=== PATIENT | female | born 1990 | race Caucasian/White ===

== ENCOUNTER 2016-09-19 18:52 | Emergency (ER) | payer OTHER ==
[~2016-09-19] VITALS: Ht 170.2 cm; Wt 79.0 kg
[~2016-09-19 18:52] MED LIST: NO MEDS
[2016-09-19 19:01] VITALS: Ht 170.2 cm; Wt 79.0 kg
--- NOTE | 2016-09-19 19:30 | ERD ---
ER Documentation Chief Complaint Date/Time DATE: 09/19/16 TIME: 19:29 Chief Complaint left breast pain HPI 26-year-old female otherwise healthy comes in the emergency room with left- sided breast pain that started today. She has a little bit of redness with swelling by the left areole, she was brushing her arm against when she noticed pain, she states this there was slight drainage from the area. She denies any fevers or chills. She states that she will started her menses yesterday and has bilateral breast pain due to this. Patient has no family history of ovarian or breast cancer, she has never had any malignancies before. ROS All systems reviewed and are negative except as per history of present illness. Medications Home Meds Reported Medications [No Meds] No Conflict Check 01/11/13 Allergies Allergies: Coded Allergies: No Known Allergy (Unverified , 01/11/13) PMhx/Soc Hx Alcohol Use: No Hx Tobacco Use: No Physical Exam Vitals Vital Signs Date Time Temp Pulse Resp B/P Pulse Ox O2 Delivery O2 Flow Rate FiO2 09/19/16 19:01 97.8 82 20 117/69 100 Physical Exam General: Well-developed, well-nourished. The patient appears in no acute distress. HEENT: Head is normocephalic, atraumatic. No scleral icterus. Neck: Supple. Nontender. No lymphadenopathy Lungs: Clear to auscultation. Normal air movement. Breasts: Pendulous breasts, no inversion of nipples, there is a 1 cm area of induration at the 4 o'clock position of the left breast between the border of the areola and breast. There is slight erythema appreciated. No axillary lymphadenopathy or masses. Heart: Regular rate and rhythm. S1 and S2 are normal. No murmurs, gallops, or rubs. Abdomen: Soft, nontender, nondistended. Bowel sounds are normoactive. Extremities: No clubbing or cyanosis. Normal pulses. Moving extremities x 4. No weakness. Neurologic: Alert and oriented 3. No focal deficits. Skin: Normal turgor. No rash or lesions. Procedures/MDM 26 year old female comes in with left breast pain, likely early abscess given the acute presentation. She actually left against medical advice before the the results, and prior to receiving a prescription for antibiotics. I spoke with him initially at the presentation, that if it is an abscess that she would need to get a prescript for antibiotics as well as apply warm compresses. It is unlikely a mass, she has been asked to follow-up with her primary care physician. Departure Diagnosis: Primary Impression: Breast pain Condition: TD Trent PA-C Sep 19, 2016 19:30
--- NOTE | 2016-09-20 10:12 | RADRPT ---
PROCEDURE: Left breast ultrasound. CLINICAL INDICATION: Left breast pain TECHNIQUE: Left whole breast and axillary sonography was performed. COMPARISON: None FINDINGS: No solid or suspicious masses. No areas of architectural distortion. No malignant adenopathy. No dominant cysts are present. IMPRESSION: No sonographic abnormality identified in the left breast to correspond to the patient's pain. BI-RADS 1: NEGATIVE RPTAT: RIC[facility] .Pedro Stewart MD, MD Date Time Electronically viewed and signed by .Pedro Stewart MD, on 09/20/2016 10:12 .M/
== END 2016-09-19 20:40 | disposition left against medical advice (07) ==
LOC: FTE 18:52 → E/R 20:40
DX: N64.4 Mastodynia (principal)
CPT/HCPCS: 76642; Z7502